=== PATIENT | male | born 1990 | race American Indian/Alaskan Native ===

== ENCOUNTER 2019-12-09 02:38 | Emergency (ER) | payer SELFPAY ==
[2019-12-09 02:49] VITALS: BP 127/76
--- NOTE | 2019-12-09 03:36 | Emergency Department Report ---
ED Medical Clearance HPI - General Chief complaint: Medical Clearance Stated complaint: MEDICAL CLEARANCE Time Seen by Provider: 12/09/19 03:31 Source: patient Mode of arrival: Ambulatory - History of Present Illness Initial comments: 29-year-old male presents to ED requesting a return to work note. Patient states he had a stomach virus a few days ago and states that his job requires a note stating that he is negative for COVID-19. Patient denies fever, cough, shortness of breath, loss of smell or taste, known exposure to anyone who has tested positive for COVID-19. Patient has no complaints at this time. -: days(s) (2) Reason for Medical Clearance: medical condition Associated Symptoms: nausea/vomiting. denies: shortness of breath, cough, fever/chills, headaches Allergies/Adverse reactions: Allergies Allergy/AdvReac Type Severity Reaction Status Date / Time seafood Allergy Swelling Uncoded 12/09/19 02:48 ED Review of Systems ROS: Stated complaint: MEDICAL CLEARANCE Other details as noted in HPI Comment: All other systems reviewed and negative Constitutional: denies: chills, fever ENT: denies: congestion Respiratory: denies: cough, shortness of breath Gastrointestinal: nausea, vomiting, diarrhea ED Past Medical Hx - Past Medical History Previous Medical History?: No - Surgical History Past Surgical History?: No - Social History Smoking Status: Current Every Day Smoker Substance Use Type: None ED Physical Exam - General Limitations: No Limitations General appearance: alert, in no apparent distress - Head Head exam: Present: atraumatic, normocephalic - Eye Eye exam: Present: normal appearance - ENT ENT exam: Present: mucous membranes moist - Neck Neck exam: Present: normal inspection - Respiratory Respiratory exam: Present: normal lung sounds bilaterally. Absent: respiratory distress - Cardiovascular Cardiovascular Exam: Present: normal rhythm, bradycardia - GI/Abdominal GI/Abdominal exam: Absent: distended - Extremities Exam Extremities exam: Present: normal inspection - Neurological Exam Neurological exam: Present: alert, oriented X3 - Psychiatric Psychiatric exam: Present: normal affect, normal mood - Skin Skin exam: Present: warm, dry, intact, normal color ED Course Vital Signs 12/09/19 02:42 Temperature 98.2 F Pulse Rate 57 L Respiratory 16 Rate Blood Pressure 127/76 O2 Sat by Pulse 99 Oximetry ED Medical Decision Making - Medical Decision Making I explained to patient that I am unable to write a work note stating that he is negative for COVID-19 as we are not doing, but testing on non-hospitalized patients. I do have a low suspicion that patient has COVID-19 since patient states his symptoms presented after eating some pasta. However, I am unable to document that he is negative for the virus. Patient advised to follow-up and have outpatient testing performed. ED Disposition Clinical Impression: Nausea, vomiting and diarrhea Disposition: MED SCREENING EXAM-LEFT Is pt being admited?: No Condition: Stable Time of Disposition: 03:36
== END 2019-12-09 03:55 | disposition left against medical advice (07) ==
LOC: ED 02:38
DX: R11.2 Nausea with vomiting, unspecified (principal); R19.7 Diarrhea, unspecified; Z53.21 Procedure and treatment not carried out due to patient leaving prior to being seen by health care provider